=== PATIENT | female | born 1965 | race Caucasian/White ===

== ENCOUNTER 2019-06-11 00:35 | Emergency (ER) | payer BC ==
[~2019-06-11] VITALS: Ht 157.5 cm; Wt 63.5 kg
--- NOTE | 2019-06-11 00:40 | ED.ADGEN ---
Past History Past Medical History: No Pertinent History Past Surgical History: Alcohol Use: None Drug Use: None Adult General Chief Complaint Chief Complaint ".. I was just watching the 9 o'clock news.. and all sudden I got this headache.. it comes up from my neck.. to up over the top.. my head.... my eyes are a little sensitive to light.. and little nauseated.. ." HPI HPI Patient is a 54 year old female who presents with above hx and complaints acute onset of neck and head pain. Patient also complaining of some photosensitivity. No history of fever. No history of chills. No history of trauma. No history immunosuppression. Patient denies any history of hypertension. Patient states she is normally healthy. Stroke scale normal with exception of photophobia. at bedside states she has no obvious subtle neuro changes with exception of her complaints of her headache. Review of Systems Review of Systems Constitutional: Denies fever or chills [] Eyes: Denies change in visual acuity, redness, or eye pain [. The patient]complaints of photophobia HENT: Denies nasal congestion or sore throat [] Respiratory: Denies cough or shortness of breath [] Cardiovascular: No additional information not addressed in HPI [] GI: Denies abdominal pain,, vomiting, bloody stools or diarrhea []. The patient complains of nausea : Denies dysuria or hematuria [] Musculoskeletal: Denies back pain or joint pain [] Integument: Denies rash or skin lesions [] Neurologic: The patient complaints of acute onset of headache. Patient denies focal weakness or sensory changes [] Endocrine: Denies polyuria or polydipsia [] All other systems were reviewed and found to be within normal limits, except as documented in this note. Family History Family History Noncontributory Current Medications Current Medications Current Medications Medications (Trade) Dose Ordered Sig/Hari Start Time Stop Time Status Last Admin Dose Admin Fentanyl Citrate (Fentanyl 2ml Vial) 50 mcg 1X ONCE 06/11/19 03:00 06/11/19 03:02 DC 06/11/19 02:58 50 MCG Labetalol HCl (Normodyne) 100 mg STK-MED ONCE 06/11/19 03:10 06/11/19 03:11 DC Labetalol HCl 200 mg/Sodium Chloride 200 ml @ 30 mls/hr 1X ONCE 06/11/19 03:00 06/11/19 03:37 DC 06/11/19 03:31 30 MLS/HR Lactated Ringer's 1,000 ml @ 1,000 mls/hr Q1H 06/11/19 00:45 06/11/19 01:44 DC 06/11/19 01:42 1,000 MLS/HR Ondansetron HCl (Zofran) 8 mg 1X ONCE 06/11/19 00:45 06/11/19 00:46 DC 06/11/19 01:44 8 MG Sodium Chloride 300 ml @ As Directed STK-MED ONCE 06/11/19 03:14 06/11/19 03:14 DC Allergies Allergies Allergies Coded Allergies Type Severity Reaction Last Updated Verified erythromycin base Allergy Severe Diarrhea 08/21/15 Yes Physical Exam Physical Exam Constitutional: Moderate acute distress, non-toxic appearance. [] HENT: Normocephalic, atraumatic, bilateral external ears normal, oropharynx moist, no oral exudates, nose normal. [] Eyes: PERRLA, EOMI, conjunctiva normal, no discharge. [] Mild photophobia. Consensual reflex intact. No obvious field deficits Neck: Normal range of motion, no tenderness, supple, no stridor. [] No bruits appreciated in carotids Cardiovascular:Heart rate regular rhythm, no murmur [] Lungs & Thorax: Bilateral breath sounds equal apexes on auscultation [] Abdomen: Bowel sounds normal, soft, no tenderness, no masses, no pulsatile masses. [] Skin: Warm, dry, no erythema, no rash. [] Back: No tenderness, no CVA tenderness. [] Extremities: No tenderness, no cyanosis, no clubbing, ROM intact, no edema. [] Neurologic: Alert and oriented X 3, normal motor function, normal sensory function, no focal deficits noted. []DTRs +2 patella and brachial. No drift. 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 NIH 0/ repeat 0 Psychologic: Affect anxious, judgement normal, mood normal. [] Current Patient Data Vital Signs Vital Signs Date Time Temp Pulse Resp B/P (MAP) Pulse Ox O2 Delivery O2 Flow Rate FiO2 06/11/19 03:32 101 14 137/83 (101) 97 Room Air 06/11/19 00:55 97.4 Lab Results Laboratory Tests Test 06/11/19 00:55 06/11/19 01:00 Urine Collection Type Unknown Urine Color Yellow Urine Clarity Hazy Urine pH >8.5 Urine Specific Dexter 1.015 Urine Protein 30 mg/dl (NEG-TRACE) Urine Glucose (UA) Neg mg/dL (NEG) Urine Ketones (Stick) 80 mg/dL (NEG) Urine Blood Neg (NEG) Urine Nitrite Neg (NEG) Urine Bilirubin Neg (NEG) Urine Urobilinogen Dipstick 0.2 mg/dL (0.2 mg/dL) Urine Leukocyte Esterase Neg (NEG) Urine RBC 0 /HPF (0-2) Urine WBC Occ /HPF (0-4) Urine Squamous Epithelial Cells Few /LPF Urine Amorphous Sediment Present /HPF Urine Bacteria 0 /HPF (0-FEW) Urine Opiates Screen Neg (NEG) Urine Methadone Screen Neg (NEG) Urine Barbiturates Neg (NEG) Urine Phencyclidine Screen Neg (NEG) Urine Amphetamine/Methamphetamine Neg (NEG) Urine Benzodiazepines Screen Neg (NEG) Urine Cocaine Screen Neg (NEG) Urine Cannabinoids Screen Neg (NEG) Urine Ethyl Alcohol Neg (NEG) White Blood Count 14.7 x10^3/uL (4.0-11.0) H Red Blood Count 4.46 x10^6/uL (3.50-5.40) Hemoglobin 13.1 g/dL (12.0-15.5) Hematocrit 39.3 % (36.0-47.0) Mean Corpuscular Volume 88 fL (79-100) Mean Corpuscular Hemoglobin 29 pg (25-35) Mean Corpuscular Hemoglobin Concent 33 g/dL (31-37) Red Cell Distribution Width 12.7 % (11.5-14.5) Platelet Count 322 x10^3/uL (140-400) Neutrophils (%) (Auto) 80 % (31-73) H Lymphocytes (%) (Auto) 12 % (24-48) L Monocytes (%) (Auto) 7 % (0-9) Eosinophils (%) (Auto) 0 % (0-3) Basophils (%) (Auto) 0 % (0-3) Neutrophils # (Auto) 11.8 x10^3uL (1.8-7.7) H Lymphocytes # (Auto) 1.8 x10^3/uL (1.0-4.8) Monocytes # (Auto) 1.0 x10^3/uL (0.0-1.1) Eosinophils # (Auto) 0.0 x10^3/uL (0.0-0.7) Basophils # (Auto) 0.0 x10^3/uL (0.0-0.2) Erythrocyte Sedimentation Rate 25 (0-25) Prothrombin Time 10.7 SEC (9.4-11.4) Prothrombin Time INR 1.0 (0.9-1.1) Activated Partial Thromboplast Time 28 SEC (23-33) Sodium Level 141 mmol/L (136-145) Potassium Level 3.9 mmol/L (3.5-5.1) Chloride Level 101 mmol/L (98-107) Carbon Dioxide Level 24 mmol/L (21-32) Anion Gap 16 (6-14) H Blood Urea Nitrogen 22 mg/dL (7-20) H Creatinine 0.8 mg/dL (0.6-1.0) Estimated GFR (Cockcroft-Gault) 74.5 Glucose Level 186 mg/dL (70-99) H Calcium Level 9.3 mg/dL (8.5-10.1) Magnesium Level 1.8 mg/dL (1.8-2.4) Total Bilirubin 0.3 mg/dL (0.2-1.0) Direct Bilirubin 0.1 mg/dL (0.0-0.2) Aspartate Amino Transferase (AST) 24 U/L (15-37) Alanine Aminotransferase (ALT) 37 U/L (14-59) Alkaline Phosphatase 115 U/L (46-116) Creatine Kinase 42 U/L (26-192) Troponin I Quantitative < 0.017 ng/mL (0-0.055) GG-Wno-A-Type Natriuretic Peptide 18 pg/mL (0-124) Total Protein 7.3 g/dL (6.4-8.2) Albumin 4.1 g/dL (3.4-5.0) EKG EKG My interpretation EKG shows sinus rhythm at 80 bpm. No findings acute STEMI of contralateral changes.[] Radiology/Procedures Radiology/Procedures [][address] [address] IMAGING REPORT Signed PATIENT: IRAIDA PHELPS ACCOUNT: [id number] : 1965 LOCATION: ER AGE: 54 SEX: F EXAM STATUS: REG ER ORD. PHYSICIAN: RAZA MOORE MD REASON: headache PROCEDURE: CT HEAD WO CONTRAST CT HEAD WO CONTRAST History: Headache Comparison: None. Technique: Noncontrast CT imaging was performed of the head. Exposure: One or more of the following individualized dose reduction techniques were utilized for this examination: 1. Automated exposure control 2. Adjustment of the mA and/or kV according to patient size 3. Use of iterative reconstruction technique. Findings: Small amount of subarachnoid hemorrhage within the interpeduncular cistern and prepontine cistern no hydrocephalus. No additional hemorrhage. Crowding of the cerebellar tonsils at the foramen magnum. Imaged orbits are unremarkable. Imaged paranasal sinuses and mastoid air cells are clear. Impression: 1. Small subarachnoid hemorrhage within the interpeduncular and prepontine cistern, can be seen with perimesencephalic subarachnoid hemorrhage. Recommend CT angiogram to rule out aneurysm. FOR INTERNAL CODING PURPOSES Critical result: Findings discussed with RAZA MOORE at 06/11/2019 1:55 AM. RESULT CODE: (C) Electronically signed by: Bo Rojas DO (06/11/2019 1:58 AM) [facility] DICTATED AND SIGNED BY: BO ROJAS DO DATE: 06/11/19 0158 CC: RAZA MOORE MD; HUGO GREGORY MD ~ Course & Med Decision Making Course & Med Decision Making Pertinent Labs and Imaging studies reviewed. (See chart for details) Discussed presentation testing with Sharlene UREÑA for Dr. Moreira- recommended patient be transferred to or neurosurgery team cable to do intervention if acute subarachnoid hemorrhage expands. Discussed presentation testing with trans adrienne team . Patient accepted to neurosurgery at . Request made to keep blood pressure systolic below 140. Critical Care: 45 min. Final Impression Final Impression 1. Sub arachnoid hemorrhage[] 2. Mild leukocytosis 14.7 3. Diabetes glucose 186 Dragon Disclaimer Dragon Disclaimer This electronic medical record was generated, in whole or in part, using a voice recognition dictation system. Dragon Disclaimer This chart was dictated in whole or in part using Voice Recognition software in a busy, high-work load, and often noisy Emergency Department environment. It may contain unintended and wholly unrecognized errors or omissions. RAZA MOORE MD Jun 11, 2019 00:40
[2019-06-11] MEDS ORDERED: ONDANSETRON PF 4 MG/2 ML VIAL. IVP ONE (00:45)
[2019-06-11] MEDS ORDERED: IV RINGERS SOLUTION,LACTATED 1,000 ML IV SCH (00:45)
[2019-06-11 01:20] LABS: BASO % 0 % (0-3); EOS % 0 % (0-3); HEMATOCRIT 39.3 % (36.0-47.0); HEMOGLOBIN 13.1 g/dL (12.0-15.5); LYMPH # 1.8 x10^3/uL (1.0-4.8); LYMPH % 12 % (24-48); MEAN CORPUSCULAR HEMOGLOBIN 29 pg (25-35); MEAN CORPUSCULAR HGB CONC 33 g/dL (31-37); MEAN CORPUSCULAR VOLUME 88 fL (79-100); MONO % 7 % (0-9); NEUT # 11.8 x10^3uL (1.8-7.7); NEUT % 80 % (31-73); PLATELET COUNT 322 x10^3/uL (140-400); RED BLOOD COUNT 4.46 x10^6/uL (3.50-5.40); RED CELL DISTRIBUTION WIDTH 12.7 % (11.5-14.5); WHITE BLOOD COUNT 14.7 x10^3/uL (4.0-11.0)
[2019-06-11 01:28] LABS: AMORPHOUS SEDIMENT,UR PRESENT /HPF; BACTERIA,URINE 0 /HPF (0-FEW); BILIRUBIN,URINE NEG (NEG); CLARITY,URINE HAZY; COLOR,URINE YELLOW; GLUCOSE,URINE NEG (NEG); NITRITE,URINE NEG (NEG); RBC,URINE 0 /HPF (0-2); SQUAMOUS EPITHELIAL CELL,UR FEW /LPF; UROBILINOGEN,URINE 0.2 mg/dL (0.2 mg/dL); WBC,URINE OCC /HPF (0-4)
[2019-06-11 01:33] LABS: BARBITURATES NEG (NEG); BENZODIAZEPINES NEG (NEG); CANNABINOIDS NEG (NEG); COCAINE NEG (NEG); METHADONE NEG (NEG); OPIATES NEG (NEG); PHENCYCLIDINE NEG (NEG)
[2019-06-11 01:34] LABS: AMPHETAMINE/METHAMPHETAMINE NEG (NEG)
[2019-06-11 01:41] LABS: ALBUMIN 4.1 g/dL (3.4-5.0); CALCIUM 9.3 mg/dL (8.5-10.1); CREATININE 0.8 mg/dL (0.6-1.0); DIRECT BILIRUBIN 0.1 mg/dL (0.0-0.2); GFR 74.5; MAGNESIUM 1.8 mg/dL (1.8-2.4); POTASSIUM 3.9 mmol/L (3.5-5.1); TOTAL BILIRUBIN 0.3 mg/dL (0.2-1.0); TOTAL PROTEIN 7.3 g/dL (6.4-8.2)
--- NOTE | 2019-06-11 02:01 | RAD ---
CT HEAD WO CONTRAST History: Headache Comparison: None. Technique: Noncontrast CT imaging was performed of the head. Exposure: One or more of the following individualized dose reduction techniques were utilized for this examination: 1. Automated exposure control 2. Adjustment of the mA and/or kV according to patient size 3. Use of iterative reconstruction technique. Findings: Small amount of subarachnoid hemorrhage within the interpeduncular cistern and prepontine cistern no hydrocephalus. No additional hemorrhage. Crowding of the cerebellar tonsils at the foramen magnum. Imaged orbits are unremarkable. Imaged paranasal sinuses and mastoid air cells are clear. Impression: 1. Small subarachnoid hemorrhage within the interpeduncular and prepontine cistern, can be seen with perimesencephalic subarachnoid hemorrhage. Recommend CT angiogram to rule out aneurysm. FOR INTERNAL CODING PURPOSES Critical result: Findings discussed with RAZA MOORE at 06/11/2019 1:55 AM. RESULT CODE: (C) Electronically signed by: Bo Rojas DO (06/11/2019 1:58 AM) [facility]
--- NOTE | 2019-06-11 02:15 | EKG ---
[address] [address] Test Date: 2019-06-11 Test Time: 01:23:05 Pat Name: IRAIDA PHELPS Department: Room: Gender: F [employer] Accounts Manager: : 1965 Requested By: RAZA MOORE Order Number: [id number] Reading MD: Measurements Intervals [place] Rate: 80 P: 53 MO: 164 QRS: 61 QRSD: 84 T: 59 QT: 376 QTc: 437 Interpretive Statements SINUS RHYTHM OTHERWISE NORMAL ECG RI6.01 No previous ECG available for comparison
[2019-06-11 02:18] LABS: SEDIMENTATION RATE 25 (0-25)
[2019-06-11] MEDS ORDERED: LABETALOL 200 MG in 0.9 % SODIUM CHLORIDE 150ML 160 ML IV ONE (03:00)
[2019-06-11] MEDS ORDERED: LABETALOL 20 MG/4 ML DISP.SYRIN. IVP PRN (03:00)
[2019-06-11] MEDS ORDERED: LABETALOL 100 MG/20 ML VIAL. IV ONE (03:10)
[2019-06-11] MEDS ORDERED: SODIUM CHLORIDE ONE ×2 (03:11→03:14)
[2019-06-11 03:32] VITALS: BP 137/83
== END 2019-06-11 03:37 | disposition short-term general hospital (02) ==
LOC: ER 00:35
DX: I60.9 Nontraumatic subarachnoid hemorrhage, unspecified (principal); M54.2 Cervicalgia; D72.829 Elevated white blood cell count, unspecified; E11.9 Type 2 diabetes mellitus without complications; Z88.1 Allergy status to other antibiotic agents
CPT/HCPCS: 36415; 70450; 80048; 80076; 80307; 81001; 82550; 83735; 83880; 84443; 84484; 85025; 85610; 85651; 85730; 93005; 96374; 96375; 96376; 99285; J2405; J3010; J3490; J7120